=== PATIENT | female | born 1980 | race Caucasian/White ===

== ENCOUNTER 2019-01-06 21:31 | Emergency (ER) | payer OTHER ==
--- NOTE | 2019-01-06 22:28 | ER ---
Nurse's Notes [facility] Name: Chani Hinojosa Age: 38 yrs Sex: Female : 1980 Arrival Date: 01/06/2019 Time: 21:32 Bed 13 Private MD: Diagnosis: Pain in left hand Presentation: 01/06 21:46 Presenting complaint: Patient states: Pt states that she was attempting to get a box fc out of the closet and it feel on her left little finger which is now swollen, tender and bruised. Transition of care: patient was not received from another setting of care. Onset of symptoms was January 06, 2019 at 14:00. Risk Assessment: Do you want to hurt yourself or someone else? Patient reports no desire to harm self or others. Initial Sepsis Screen: Does the patient meet any 2 criteria? No. Patient's initial sepsis screen is negative. Does the patient have a suspected source of infection? No. Patient's initial sepsis screen is negative. Care prior to arrival: Medication(s) given: Naproxen at 1415. 21:46 Method Of Arrival: Ambulatory 21:46 Acuity: JESUS 4 Triage Assessment: 21:46 General: Appears comfortable, obese, Behavior is calm, cooperative, appropriate for age. Pain: Complains of pain in left little finger Pain currently is 5 out of 10 on a pain scale. at worst was 10 out of 10 on a pain scale. Quality of pain is described as aching, throbbing, Pain began at 1400 Is continuous, Aggravated by increased activity, repositioning. EENT: No deficits noted. Neuro: Level of Consciousness is awake, alert, obeys commands, Oriented to person, place, time, situation, Appropriate for age. Cardiovascular: No deficits noted. Respiratory: No deficits noted. GI: No deficits noted. : No deficits noted. Derm: Skin is pink, warm \T\ dry. Bruising that is dark purple, on left little finger. Musculoskeletal: Swelling present in left little finger Reports pain in left little finger. Injury Description: Bruise sustained to left little finger. 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 - Social history:: Smoking status: Patient/guardian denies using tobacco, Patient/guardian denies using alcohol, street drugs. - Ebola Screening: : Patient negative for fever greater than or equal to 101.5 degrees Fahrenheit, and additional compatible Ebola Virus Disease symptoms Patient denies exposure to infectious person Patient denies travel to an Ebola-affected area in the 21 days before illness onset. Screenin:51 Abuse screen: Denies threats or abuse. Nutritional screening: No deficits noted. Tuberculosis screening: No symptoms or risk factors identified. Fall Risk None identified. Assessment: 21:49 Reassessment: see triage assessment. 22:00 Reassessment: Pt see by provider and is pending xrays. Vital Signs: 21:46 BP 119 / 74; Pulse 72; Resp 18; Temp 98.2(O); Pulse Ox 100% on R/A; Weight 95.25 kg fc (R); Height 5 ft. 2 in. (157.48 cm) (R); Pain 5/10; 21:46 Body Mass Index 38.41 (95.25 kg, 157.48 cm) ED Course: 21:32 Patient arrived in ED. ds1 21:46 Arm band placed on Patient placed in an exam room, on a stretcher. 21:47 Triage completed. 21:50 [facility] Chang [facility]. jr8 21:50 Bal Zelaya MD is Attending Physician. 8 21:51 Patient has correct armband on for positive identification. Bed in low position. Call fc light in reach. 21:51 No provider procedures requiring assistance completed. fc 22:23 XRAY Hand LEFT 3 View In Process Unspecified. EDMS 22:30 finger splint to left 5th finger. fc 22:55 Patient did not have IV access during this emergency room visit. Administered Medications: No medications were administered Outcome: 22:27 Discharge ordered by . jr8 22:49 Patient left the ED. 22:50 Discharged to home ambulatory, with family. 22:50 Condition: good 22:50 Discharge instructions given to patient, family, Instructed on discharge instructions, follow up and referral plans. Demonstrated understanding of instructions, follow-up care, splint care, Prescriptions given X none Signatures: Dispatcher [employer] Miley Burch RN RN fc [place], Demi ds1 Praveen Chang PA PA jr8
--- NOTE | 2019-01-06 22:28 | EDPHYS ---
Physician Documentation [facility] Name: Chani Hinojosa Age: 38 yrs Sex: Female : 1980 Arrival Date: 01/06/2019 Time: 21:32 Bed 13 Private MD: ED Physician Bal Zelaya HPI: 01/06 22:07 This 38 yrs old Female presents to ER via Ambulatory with complaints of jr8 Finger Injury. 22:07 Trauma demographics: County: The injury occurred in [place]. Mechanism of injury: jr8 object fell from shelf. Associated injuries: The patient sustained left little finger. Pt reports at about 1400 a box fell from a shelf and injured her left fifth digit. 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 - Social history:: Smoking status: Patient/guardian denies using tobacco, Patient/guardian denies using alcohol, street drugs. - Ebola Screening: : Patient negative for fever greater than or equal to 101.5 degrees Fahrenheit, and additional compatible Ebola Virus Disease symptoms Patient denies exposure to infectious person Patient denies travel to an Ebola-affected area in the 21 days before illness onset. ROS: 22:08 MS/extremity: Positive for ecchymosis, pain, swelling, of the left little finger. jr8 22:08 All other systems are negative. 22:28 Constitutional: Negative for fever, chills, and weight loss. jr8 Exam: 22:08 Constitutional: This is a well developed, well nourished patient who is awake, alert, jr8 and in no acute distress. Head/Face: Normocephalic, atraumatic. Eyes: Pupils equal round and reactive to light, extra-ocular motions intact. Lids and lashes normal. Conjunctiva and sclera are non-icteric and not injected. Cornea within normal limits. Periorbital areas with no swelling, redness, or edema. Chest/axilla: Normal chest wall appearance and motion. Nontender with no deformity. No lesions are appreciated. Cardiovascular: Regular rate and rhythm with a normal S1 and S2. No gallops, murmurs, or rubs. Normal PMI, no JVD. No pulse deficits. Respiratory: Lungs have equal breath sounds bilaterally, clear to auscultation and percussion. No rales, rhonchi or wheezes noted. No increased work of breathing, no retractions or nasal flaring. Neuro: Awake and alert, GCS 15, oriented to person, place, time, and situation. Cranial nerves II-XII grossly intact. Motor strength 5/5 in all extremities. Sensory grossly intact. Cerebellar exam normal. Normal gait. 22:08 Musculoskeletal/extremity: Extremities: noted in the left little finger: contusion, ecchymosis, pain, swelling. Vital Signs: 21:46 BP 119 / 74; Pulse 72; Resp 18; Temp 98.2(O); Pulse Ox 100% on R/A; Weight 95.25 kg fc (R); Height 5 ft. 2 in. (157.48 cm) (R); Pain 5/10; 21:46 Body Mass Index 38.41 (95.25 kg, 157.48 cm) fc MDM: 21:50 Patient medically screened. jr8 22:25 Data reviewed: vital signs, nurses notes, radiologic studies, and as a result, I will jr8 discharge patient. Counseling: I had a detailed discussion with the patient and/or guardian regarding: the historical points, exam findings, and any diagnostic results supporting the discharge/admit diagnosis, radiology results. ED course: Pt xray of left hand without obvious fracture or deformity, will splint for comfort and in case of occult fracture, discussed need to outpatient FU. 01/06 21:50 Order name: XRAY Hand LEFT 3 View mw2 01/06 22:25 Order name: Finger Splint; Complete Time: 22:54 jr8 Administered Medications: No medications were administered Disposition: 01/07 08:33 Co-signature as Attending Physician, Bal Zelaya MD I agree with the assessment and antoni plan of care. Disposition: 01/06/19 22:27 Discharged to Home. Impression: Pain in left hand. - Condition is Stable. - Discharge Instructions: Musculoskeletal Pain, Finger Sprain, Adult. - Medication Reconciliation Form, Thank You Letter form. - Follow up: Private Physician; When: 2 - 3 days; Reason: Recheck today's complaints, Re-evaluation by your physician. - Problem is new. - Symptoms are unchanged. Signatures: Dispatcher [employer] Bal Avery MD MD cha Chretien, Felicia RN RN Praveen Chandler PA PA jr8 Corrections: (The following items were deleted from the chart) 01/06 22:49 22:27 01/06/2019 22:27 Discharged to Home. Impression: Pain in left hand. Condition is fc Stable. Forms are Medication Reconciliation Form, Thank You Letter, Antibiotic Education, Prescription Opioid Use. Follow up: Private Physician; When: 2 - 3 days; Reason: Recheck today's complaints, Re-evaluation by your physician. Problem is new. Symptoms are unchanged. jr8
[2019-01-06 23:05] VITALS: BP 119/74; TEMP 98.2; O2SAT 100
--- NOTE | 2019-01-07 07:22 | RAD REPORT ---
EXAM DESCRIPTION: RAD -Hand Left 3 View - 01/06/2019 10:23 pm CLINICAL HISTORY: Left hand pain status post injury FINDINGS: Lucency is present within the volar aspect of the base of the fifth middle phalanx. This p robably represents prominent trabecula. Nondisplaced fracture can also have this appearance but is pr obably less likely. Clinical correlation is needed see if patient has point tenderness in this region to suggest a fracture. If the diagnosis remains uncertain further evaluation with MRI or CT could be obtained No dislocation
== END 2019-01-06 22:49 | disposition home or self-care (01) ==
LOC: ER 21:31
DX: S60.052A Contusion of left little finger without damage to nail, initial encounter (principal); W22.8XXA Striking against or struck by other objects, initial encounter; Y93.9 Activity, unspecified; Y92.9 Unspecified place or not applicable
CPT/HCPCS: 99283